=== PATIENT | female | born 1980 | race Caucasian/White ===

== ENCOUNTER 2022-02-10 08:44 | Inpatient (IN) | payer BC ==
[2022-02-10] VITALS (10 sets, daily range): BP systolic 101–120; BP diastolic 49–85
[~2022-02-10] VITALS: Ht 180.3 cm; Wt 87.3 kg
[2022-02-10] MEDS ORDERED: TRAZ-118 PO (11:17)
[2022-02-10] MEDS ORDERED: ESCI20TA8 PO (11:17)
--- NOTE | 2022-02-10 14:48 | PDOC ---
Provider Note Date of Service: DATE: 02/10/22 TIME: 14:47 Provider Note Patient seen and examined consulted for SAH s/p fall c/o very mild headache neuro intact CT with small amount of Subarachnoid blood primarily left sylvian fissure follow up CT pending, if okay she may transfer to the floor and likely dc tomorrow D/W RN Justifications for Admission Other Justification PEDRO MATAMOROS MD Feb 10, 2022 14:48
--- NOTE | 2022-02-10 15:13 | RAD ---
CT scan of the head without contrast 02/10/2022 Clinical History: Subarachnoid hemorrhage. Technique: Unenhanced, contiguous, 5 mm axial sections were obtained through the head. One or more of the following individualized dose reduction techniques were utilized for this study: 1. Automated exposure control. 2. Adjustment of the mA and/or kV according to patient size. 3. Use of iterative reconstruction technique. Findings: Comparison study is dated earlier the same day at 0308 hours. The ventricles are within normal limits in size and configuration. Acute subarachnoid hemorrhage is s een predominantly within the left sylvian fissure. This has not significantly changed. No acute paren chymal abnormality is seen. Skin pat are seen along the right parietal scalp. There is associated soft tissue swelling. No skull fracture is seen. IMPRESSION: Stable CT appearance of the subarachnoid hemorrhage within the left sylvian fissure. Electronically signed by: Lupillo Pabon MD (02/10/2022 3:11 PM) [id number]
--- NOTE | 2022-02-10 23:36 | NUR ---
Friends/coworkers at desk expressing concerns over pt mental status. Stated taht pt has been isolating self, not keeping up with household tasks - stating not like her at all, fixating on small things, unable to make own decisions, has taken less PO intake and increased ETOH, stopped going to uatsdin, made a statement about if "the Lord decides to take me, I'm ok with it" - saying whether it be a car accident or a terminal illness. Pt flippant about friends' concerns - displays lack of interest in conversation when friends' discussing concerns with pt. Pt remarked that is "is some boy" - friends report that pt stalking said boy on social media and monitoring his use of it. RN stated would put in notes about friends concerns and consult psych to see. On separate note, pt reported feeling a tightness in throat after drinking soda which prevented her from swallowing or burping and pt states that is what caused her to pass out and hit head. Requesting that drs address issue while here. RN informed pt that drs most likely to have her seek outpatient help but that would make note about it. Will continue to monitor pt status closely.
[2022-02-11 03:00] VITALS: BP 98/49
[2022-02-11 07:00] VITALS: BP 106/63
[2022-02-11] MEDS: ACETAMINOPHEN 325 MG TABLET. PO PRN ×2 (07:42→14:47)
[2022-02-11 11:00] VITALS: BP 120/78
--- NOTE | 2022-02-11 11:37 | DISCH ---
DISCHARGE INSTRUCTIONS Condition on Discharge Condition on Discharge: Stable Activity After Discharge Activity Instructions for Disc: Activity as tolerated Lifting Instructions after Dis: Do not lift >10 pounds Exercise Instruction after Dis: Walk 30 min, 5 x per week Driving Instructions after Dis: Do not drive today Weight Bearing Status after Di: As tolerated Diet after Discharge Diet after Discharge: Cardiac Follow-Up Follow up with: PCP within 2 weeks of discharge for staple removal Follow Up With: Neurosurgery as needed BERTA FORTE MD Feb 11, 2022 11:37
--- NOTE | 2022-02-11 12:21 | NUR ---
This RN called to verify with Dr. Delgado if pt needed ordered psychiatric evaluation before discharge. Dr. Delgado instructed this RN to ask pt if she wanted to speak with a counselor and ask if she is currently experiencing suicidal ideation. This RN spoke with pt and pt denied need for counseling and denied suicidal ideation. Pt reports she spoke with her gyn physician. Will inform Dr. Delgado. Addendum: 02/11/22 at 1353 by ANNIE MCNEAL RN Dr. Delgado notified in person that pt denied need for counseling/denied suicidal ideation. Pt okay to discharge, no additional orders received.
--- NOTE | 2022-02-11 14:54 | NUR ---
Pt left unit at approx 1450 by ambulation via private vehicle, accompanied by parents. Pt's IV removed without complication, VSS. Discharge paperwork discussed at length with pt, including follow-up, medications, and education regarding subarachnoid hemorrhage. Pt and parents verbalize understanding.
--- NOTE | 2022-02-13 12:48 | PDOC1 ---
History and Physical Date of Service: DOS: DATE: 02/10/22 TIME: 12:43 Late entry Chief Complaint: Chief Complain: Fall History of Present Illness: HPI: 41-year-old female coming in for laceration to the back of her head. Patient states that she had a syncopal episode about 5-6 hours prior to arrival, was not sure what time she fell exactly. Patient states that she had gotten up to go to her kitchen to severely eat and took a large cup of soda which she felt go down the wrong way. Patient then remembers getting up and going to bed. Patient woke up with pain in the back of her head and blood on her pillow. Patient states that she has not been eating and drinking well since she went through a recent break-up. Denies any prior history of syncopal episodes or medical hist ory. Denies any significant family history. Denies any drug or alcohol abuse. Last tetanus greater than 5 years. Past Medical/Surgical History: PMH/PSH: No past medical history. Past surgical history of bilateral knee arthroscopy and ACL repair Allergies: Allergies: Coded Allergies: No Known Drug Allergies (Unverified , 04/01/15) Family History: Family History: Reviewed with no relative findings in the chart Social History: Social History: Denies any alcohol, tobacco or drug abuse. Current Medications: Current Medications Current Medications Acetaminophen (Tylenol) 650 mg PRN Q6HRS PRN PO MILD PAIN / TEMP > 100.3'F Last administered on 02/11/22at 14:47; Start 02/11/22 at 07:15; Stop 02/11/22 at 14:57; Status DC Active Scripts Active Reported Escitalopram Oxalate 20 Mg Tablet 1 Tab PO DAILY Trazodone Hcl 50 Mg Tablet 50 Mg PO QHS ROS: Review of Systems Review of System REVIEW OF SYSTEMS: GENERAL: Positive for headache SKIN: No bruising, hair changes or rashes. EYES: No blurred, double or loss of vision. NOSE AND THROAT: No history of nosebleeds, hoarseness or sore throat. HEART: No history of palpitations, chest pain or shortness of breath on exertion. LUNGS: Denies cough, hemoptysis, wheezing or shortness of breath. GASTROINTESTINAL: Denies changes in appetite, nausea, vomiting, diarrhea or constipation. GENITOURINARY: No history of frequency, urgency, hesitancy or nocturia. NEUROLOGIC: Denies history of numbness, tingling, or tremor. PSYCHIATRIC: No history of panic, anxiety or depression. ENDOCRINE: No history of heat or cold intolerance, polyuria or polydipsia. EXTREMITIES: Denies joint pain, pain on walking or stiffness. Physical Exam: Physcial Exam: General: Well developed, well nourished, no acute distress, well appearing HEENT: Pupils equally round and reactive to light, EOMI, no discharge, normal conjunctiva. Posterior head scalp pat intact with no active bleeding. Minimal erythema and mild swelling around the staple line. Neck: Supple, no nuchal rigidity, no JVD, trachea midline, no tenderness Cardiac: RRR, no murmurs, no gallops, no rubs Chest/Lungs: CTAB, no wheeze, no rhonchi, no crackles Abdomen: soft, non-distended, no guarding, no peritoneal signs, non-tender Back: No tenderness Extremities: no edema, pulses intact, non-tender,capillary refill <3 sec bilateral upper and lower extremities, Neuro: Alert and oriented x 4, no focal deficits, normal speech Images: Images PROCEDURE: CT HEAD WO CONTRAST STUDY: CT head without contrast INDICATION: Syncope. Head injury. Pain. COMPARISON: None. TECHNIQUE: Axial CT imaging through the head without the use of intravenous contrast. Sagittal and coronal reformats were obtained. One or more of the following individualized dose reduction techniques were utilized for this examination: 1. Automated exposure control 2. Adjustment of the mA and/or kV according to patient size 3. Use of iterative reconstruction technique. FINDINGS: Small volume left temporal lobe subarachnoid hemorrhage seen extending along a portion of the sylvian fissure. Avitia-white matter differentiation is maintained. No midline shift or hydrocephalus. Right posterior parietal scalp contusion/laceration. No depressed calvarial fracture. IMPRESSION: 1. Small volume acute subarachnoid hemorrhage centered along the left sylvian fissure. No midline shift or hydrocephalus. 2. Right parietal scalp contusion/laceration. No depressed calvarial fracture. Assessment/Plan Assessment/Plan Mechanical fall Acute subarachnoid hemorrhage Mild hypokalemia History of depression Admit to ICU for further management Serial neuro exams Repeat CT head Neurosurgery consult IV antihypertensive regimen to maintain systolic blood pressure between 150-180 systolic SCD for DVT prophylaxis Protonix GI prophylaxis ADA diet CODE STATUS full Discussed with RN and SW Disposition inpatient management as above DPOA: Mother A total of 40 minutes of critical care time was spent in reviewing chart, labs, and images. Discussed with RN and SW. Justifications for Admission Other Justification BERTA FORTE MD February 13, 2022 12:48
--- NOTE | 2022-02-13 12:50 | PDOC3 ---
[facility]-Discharge Summary Date of Admission: Date of Admission: Feb 10, 2022 Date of Discharge: Date of Discharge: Feb 11, 2022 Discharge Diagnosis: Discharge Diagnosis: Mechanical fall Acute subarachnoid hemorrhage Mild hypokalemia History of depression Hospital Course: Hospital Course: Patient transferred from [facility] to be observed in the ICU. Repeat CT head did not show worsening of SAH bleed. Neurosurgery cleared for discharge. On day of discharge patient was clinically stable and ready to go home. Apparently the nurse had documented that there was some friends worried about patient's wellbeing. Please see her note for details. However, upon my examination patient was not suicidal or anxious. I felt there is no concern for her safety at time of discharge. Rest of hospital course was uneventful. Activity: Activity: Resume previous activity Diet: Diet: Cardiac Medications: Home Meds Reported Medications Escitalopram Oxalate (Escitalopram Oxalate) 20 Mg Tablet, 1 TAB PO DAILY for depression 02/10/22 Trazodone Hcl (TRAZODONE HCL) 50 Mg Tablet, 50 MG PO QHS for htn 02/10/22 Scheduled Escitalopram Oxalate (Escitalopram Oxalate), 1 TAB PO DAILY, (Reported) Trazodone Hcl (Trazodone Hcl), 50 MG PO QHS, (Reported) Total Time: Total Time: Total time spent was 32 minutes in preparing scripts, discharge planning with SWI and RN and preparing this discharge summary Patient seen and examined on day of discharge. No acute abnormal findings. Justicifation of Admission Dx: Justifications for Admission: Justification of Admission Dx: Yes Acute Hemorrhagic Stroke: Acute Hemorrhagic Stroke BERTA FORTE MD February 13, 2022 12:50
== END 2022-02-11 14:57 | disposition home or self-care (01) | DRG 84 ==
LOC: 1 WEST ICU 08:44 → 5 NORTH 18:57
PROVIDERS: ADMIT Internal Medicine; ATTEND Internal Medicine
DX: S06.6X9A Traumatic subarachnoid hemorrhage with loss of consciousness of unspecified duration, initial encounter (principal); E87.6 Hypokalemia; S01.01XA Laceration without foreign body of scalp, initial encounter; F32.A Depression, unspecified; W18.39XA Other fall on same level, initial encounter; Y93.89 Activity, other specified; Y92.89 Other specified places as the place of occurrence of the external cause; Y99.8 Other external cause status
CPT/HCPCS: 70450; G0378

== ENCOUNTER → 2022-03-15 | Outpatient (CLI) | payer BC ==
[~2022-03-15] MED LIST: ESCI20TA8 PO; TRAZ-118 PO
--- NOTE | 2022-03-15 11:30 | KCIC ---
CT HEAD WITHOUT CONTRAST 03/15/2022 10:54 AM Indication: Reason: Follow up SAH. / Spl. Instructions: / History: Comparison: CT head without contrast February 03, 2020. Procedure: Multidetector CT imaging of the head was performed without the administration of contrast. Findings: Left-sided subarachnoid hemorrhage has resolved. There is no evidence of acute intracranial hemorrhage. There is no evidence of acute territorial infarction. Please note that CT is limited for evaluation of acute ischemia. No mass effect or midline shift is identified . The ventricles and bas ilar cisterns have an appropriate appearance. No abnormal extra-axial fluid collections are seen. No acute osseous changes are identified. Impression: 1.No evidence of acute intracranial abnormality 2. Resolution of previously seen left-sided subarachnoid hemorrhage CT DOSING PQRS STATEMENT: One or more of the following individualized dose reduction techniques were utilized for this examinat ion: 1. Automated exposure control 2. Adjustment of the mA and/or kV according to patient size 3. Use of iterative reconstruction technique Electronically signed by: Adam Falcon MD (03/15/2022 11:27 AM) [id number]
== END ==
LOC: KCIC CT 10:50
PROVIDERS: ATTEND Neurological Surgery
DX: S06.6X0D Traumatic subarachnoid hemorrhage without loss of consciousness, subsequent encounter (principal); X58.XXXD Exposure to other specified factors, subsequent encounter
CPT/HCPCS: 70450